=== PATIENT | female | born 1980 | race Two or more races ===

== ENCOUNTER 2024-08-28 21:27 | Inpatient (IN) | payer OTHER, MEDICAID ==
[~2024-08-28] VITALS: Ht 165.1 cm; Wt 54.9 kg
[2024-08-28] MEDS ORDERED: MORPHINE SULFATE 4 MG/ML INJ (FOR IV/IM USE) IV ONE (21:45)
[2024-08-28] MEDS: MORPHINE SULFATE 4 MG/ML INJ (FOR IV/IM USE) IV NR (23:02)
[2024-08-28 23:19] LABS: CHLORIDE 95 mEq/L (98-107); POTASSIUM 4.6 mEq/L (3.5-5.1); SODIUM 123 mEq/L (136-145)
[2024-08-28 23:20] LABS: CALCIUM 9.1 mg/dL (8.7-10.4); CARBON DIOXIDE 26 mEq/L (21-32)
[2024-08-28 23:25] LABS: CREATININE 0.7 mg/dL (0.6-1.0); GLUCOSE 120 mg/dL (70-105); UREA NITROGEN BLOOD 20 mg/dL (9-23)
[2024-08-28 23:27] LABS: ALANINE AMINOTRANSFERASE 35 IU/L (10-49); ALBUMIN 3.2 g/dL (3.2-4.8); ASPARTATE AMINOTRANSFERASE 39 IU/L (<34); BILIRUBIN DIRECT 13.1 mg/dL (<=3.0); PROTEIN TOTAL 7.4 g/dL (6.0-8.3)
[2024-08-28 23:30] LABS: HEMATOCRIT. 22.3 % (36.0-48.0); HEMOGLOBIN. 7.7 g/dL (12.0-16.0); MEAN CORPUSCULAR HEMOGLOBIN 44.4 pg (28.0-32.0); MEAN CORPUSCULAR HGB CONC 34.4 g/dL (31.0-37.0); MEAN CORPUSCULAR VOLUME 129.1 fL (81.0-99.0); MEAN PLATELET VOLUME 7.9 fl (7.4-10.4); PLATELET 73 x1000/uL (130-400); RED BLOOD CELL COUNT 1.73 mill/uL (4.2-5.4); RED CELL DISTRIBUTION WIDTH 24.2 % (11.6-14.6); WHITE BLOOD COUNT 7.9 x1000/uL (4.5-11.0)
[2024-08-28 23:31] LABS: HCG SCREEN NEGATIVE
[2024-08-28 23:34] LABS: DIFFERENTIAL COMMENT 1
[2024-08-28] MEDS: SODIUM CHLORIDE 0.9% 500 ML IV ONE (23:45)
[2024-08-28 23:54] LABS: TROPONIN I HIGH SENSITIVITY 39 ng/L (3.0-34)
[2024-08-28 23:57] LABS: INR 2.1; PROTHROMBIN TIME 22.4 sec (9.6-11.0)
[2024-08-29] VITALS (7 sets, daily range): BP systolic 81–111; BP diastolic 51–62; PULSE 76–82; RESP 16–30; TEMP 36.78072–37.89192; O2SAT 96–100
[2024-08-29 07:25] LABS: PLATELET ESTIMATE DECREASED
[2024-08-29 07:26] LABS: ANISOCYTOSIS 2+
[2024-08-29 10:42] LABS: BG CARBOXYHEMOGLOBIN 3.1 % (0.5-1.5); BG DEOXYHEMOGLOBIN 0.3 % (0.0-5.0); BG FRACTION INSPIRED OXYGEN 32; BG METHEMOGLOBIN 0.3 % (0.5-1.5); BG OXYGEN SATURATION 99.7 % (94.0-98.0); BG OXYHEMOGLOBIN 96.3 % (94.0-98.0); BG PCO2 36.1 mmHg (32.0-45.0); BG PH 7.441 (7.350-7.450); BG PO2 168.4 mmHg (83.0-108.0); BG SAMPLE SITE LEFT RADIAL; BG TOTAL HEMOGLOBIN 8.6 g/dL (12.0-16.0); BG VENT MODE NASAL CANNULA
[2024-08-29 11:15] LABS: CARBON DIOXIDE 25 mEq/L (21-32); CHLORIDE 98 mEq/L (98-107); POTASSIUM 5.3 mEq/L (3.5-5.1); SODIUM 126 mEq/L (136-145)
[2024-08-29 11:16] LABS: CALCIUM 8.8 mg/dL (8.7-10.4)
[2024-08-29 11:21] LABS: CREATININE 0.3 mg/dL (0.6-1.0); GLUCOSE 106 mg/dL (70-105); UREA NITROGEN BLOOD 18 mg/dL (9-23)
[2024-08-29] MEDS ORDERED: LORAZEPAM 2MG/ML INJ IV PRN (12:00)
[2024-08-29] MEDS ORDERED: IPRATROPIUM/ALBUTEROL 0.5-3(2.5)MG/3ML NEB HHN PRN (12:15)
[2024-08-29] MEDS ORDERED: NALOXONE HCL 0.4MG/ML VIAL IV PRN (12:15)
[2024-08-29 13:13] LABS: AMMONIA 55 uMol/L (<32)
[2024-08-29] MEDS ORDERED: PIPERACILLIN/TAZO 3.375G/50ML 50 ML IV SCH (14:00)
[2024-08-29] MEDS ORDERED: CEFEPIME 2GM/50ML DUPLEX 50 ML IV SCH (14:00)
[2024-08-29] MEDS ORDERED: ACETAMINOPHEN 650MG SUPP PR PRN (15:15)
[2024-08-29] MEDS: CEFEPIME 2GM/100ML 100 ML IV SCH (15:21)
[2024-08-29] MEDS: MORPHINE SULFATE 2 MG/ML INJ (NOT FOR IM USE) IV PRN (15:22)
[2024-08-29] MEDS: METRONIDAZOLE 500 MG PREMIX 100 ML IV SCH (16:50)
[2024-08-29] MEDS: ALBUMIN HUMAN 12.5G/250ML (5%) IV NR (18:50)
[2024-08-29] MEDS: MORPHINE SULFATE 2 MG/ML INJ (NOT FOR IM USE) IV SCH (18:51)
[2024-08-30] VITALS: BP 91/52; PULSE 81; RESP 19; TEMP 37.61412; O2SAT 100
[2024-08-30 04:00] VITALS: BP 90/49; PULSE 84; RESP 23; TEMP 37.00296; O2SAT 100
[2024-08-30 07:38] LABS: CARBON DIOXIDE 22 mEq/L (21-32)
[2024-08-30 07:44] LABS: GLUCOSE 98 mg/dL (70-105); UREA NITROGEN BLOOD 24 mg/dL (9-23)
[2024-08-30 07:45] LABS: THYROID STIMULATING HORMONE 0.83 uIU/mL (0.55-4.78)
[2024-08-30 08:00] VITALS: BP 88/48; PULSE 73; RESP 13; TEMP 36.78072; O2SAT 100
[2024-08-30 08:31] LABS: CREATININE 0.6 mg/dL (0.6-1.0)
[2024-08-30 08:33] LABS: CHLORIDE 100 mEq/L (98-107); POTASSIUM 4.9 mEq/L (3.5-5.1); SODIUM 128 mEq/L (136-145)
[2024-08-30] MEDS: ZINC OXIDE 20% OINT 30GM TOP SCH (09:00)
[2024-08-30 12:00] VITALS: BP 88/51; PULSE 70; RESP 18; TEMP 36.9474; O2SAT 100
[2024-08-30] MEDS: MIDODRINE HCL 5MG TABLET PO SCH (12:14)
[2024-08-30 16:00] VITALS: BP 86/49; PULSE 73; RESP 20; TEMP 36.83628; O2SAT 98
[2024-08-30 20:00] VITALS: BP 81/44; PULSE 62; RESP 19; TEMP 36.44736; O2SAT 100
[2024-08-31] VITALS: BP 81/44; PULSE 77; RESP 22; TEMP 36.83628; O2SAT 99
[2024-08-31 04:00] VITALS: BP 82/41; PULSE 74; RESP 16; TEMP 36.44736; O2SAT 100
[2024-08-31 07:23] LABS: POTASSIUM 5.2 mEq/L (3.5-5.1)
[2024-08-31 07:24] LABS: CALCIUM 8.4 mg/dL (8.7-10.4)
[2024-08-31] MEDS: SODIUM CHLORIDE 0.9% 500 ML IV ONE (07:30)
[2024-08-31 07:55] LABS: HEMATOCRIT. 23.3 % (36.0-48.0); HEMOGLOBIN. 7.8 g/dL (12.0-16.0); MEAN CORPUSCULAR HEMOGLOBIN 46.8 pg (28.0-32.0); MEAN CORPUSCULAR HGB CONC 33.5 g/dL (31.0-37.0); MEAN CORPUSCULAR VOLUME 139.6 fL (81.0-99.0); RED BLOOD CELL COUNT 1.67 mill/uL (4.2-5.4); RED CELL DISTRIBUTION WIDTH 21.9 % (11.6-14.6)
[2024-08-31 08:00] VITALS: BP 77/40; PULSE 67; RESP 19; TEMP 36.9474; O2SAT 100
[2024-08-31] MEDS: ALBUMIN HUMAN 25GM/100ML (25%) IV SCH (08:18)
[2024-08-31 08:27] LABS: DIFFERENTIAL COMMENT 1
[2024-08-31] MEDS: SODIUM ZIRCONIUM CYCLOSILICATE 10GM/PACKET PO SCH (09:11)
[2024-08-31 12:00] VITALS: BP 81/47; PULSE 65; RESP 23; TEMP 36.55848; O2SAT 100
[2024-08-31 14:35] LABS: ANISOCYTOSIS 3+; PLATELET 53 x1000/uL (130-400); PLATELET ESTIMATE MARKEDLY DECREASED
[2024-08-31 14:36] LABS: MEAN PLATELET VOLUME 8.9 fl (7.4-10.4)
[2024-08-31] MEDS: SODIUM CHLORIDE 0.9% (SEPSIS BOLUS) IV ONE (14:57)
[2024-08-31 16:00] VITALS: BP 86/49; PULSE 61; RESP 18; TEMP 36.61404; O2SAT 100
[2024-08-31 20:00] VITALS: BP 89/49; PULSE 60; RESP 16; TEMP 36.83628; O2SAT 98
[2024-09-01] VITALS: BP 78/52; PULSE 60; RESP 20; TEMP 36.72516; O2SAT 97
[2024-09-01 04:00] VITALS: BP 91/47; PULSE 61; RESP 21; TEMP 36.55848; O2SAT 100
[2024-09-01 08:00] VITALS: BP 88/49; PULSE 68; RESP 19; TEMP 36.6696; O2SAT 100
[2024-09-01 10:35] LABS: HEMATOCRIT. 24.3 % (36.0-48.0); HEMOGLOBIN. 8.6 g/dL (12.0-16.0); MEAN CORPUSCULAR HGB CONC 35.5 g/dL (31.0-37.0); MEAN CORPUSCULAR VOLUME 132.4 fL (81.0-99.0); RED BLOOD CELL COUNT 1.84 mill/uL (4.2-5.4); RED CELL DISTRIBUTION WIDTH 18.8 % (11.6-14.6)
[2024-09-01 10:41] LABS: CHLORIDE 101 mEq/L (98-107); POTASSIUM 4.8 mEq/L (3.5-5.1); SODIUM 124 mEq/L (136-145)
[2024-09-01 10:42] LABS: CALCIUM 8.6 mg/dL (8.7-10.4); CARBON DIOXIDE 19 mEq/L (21-32)
[2024-09-01 10:47] LABS: CREATININE 0.9 mg/dL (0.6-1.0); GLUCOSE 112 mg/dL (70-105); UREA NITROGEN BLOOD 46 mg/dL (9-23)
[2024-09-01 11:02] LABS: DIFFERENTIAL COMMENT 1
[2024-09-01 12:00] VITALS: BP 80/42; PULSE 70; RESP 18; TEMP 36.61404; O2SAT 100
[2024-09-01 15:37] LABS: ANISOCYTOSIS 2+; PLATELET ESTIMATE DECREASED
[2024-09-01 15:38] LABS: ROULEAUX 1+
[2024-09-01 15:39] LABS: MEAN PLATELET VOLUME 8.4 fl (7.4-10.4); PLATELET 71 x1000/uL (130-400)
[2024-09-01 16:00] VITALS: BP 91/57; PULSE 66; RESP 15; TEMP 36.55848; O2SAT 100
[2024-09-01 20:00] VITALS: BP 83/45; PULSE 57; RESP 16; TEMP 36.9474; O2SAT 96
[2024-09-02] VITALS: BP 90/43; PULSE 56; RESP 19; TEMP 36.83628; O2SAT 100
[2024-09-02 04:00] VITALS: BP 87/41; PULSE 56; RESP 22; TEMP 36.72516; O2SAT 100
[2024-09-02 07:43] LABS: POTASSIUM 4.9 mEq/L (3.5-5.1)
[2024-09-02 07:45] LABS: HEMATOCRIT. 27.3 % (36.0-48.0); HEMOGLOBIN. 9.1 g/dL (12.0-16.0); MEAN CORPUSCULAR HEMOGLOBIN 46.3 pg (28.0-32.0); MEAN CORPUSCULAR HGB CONC 33.2 g/dL (31.0-37.0); MEAN CORPUSCULAR VOLUME 139.5 fL (81.0-99.0); RED BLOOD CELL COUNT 1.96 mill/uL (4.2-5.4)
[2024-09-02 08:00] VITALS: BP 88/46; PULSE 72; RESP 18; TEMP 36.72516; O2SAT 98
[2024-09-02 08:25] LABS: DIFFERENTIAL COMMENT 1
[2024-09-02 12:00] VITALS: BP 90/47; PULSE 84; RESP 18; TEMP 36.72516; O2SAT 98
[2024-09-02 16:00] VITALS: BP 87/46; PULSE 76; RESP 20; TEMP 36.6696; O2SAT 99
[2024-09-02 16:21] LABS: ANISOCYTOSIS 1+
[2024-09-02 16:22] LABS: ROULEAUX 1+
[2024-09-02 16:23] LABS: MEAN PLATELET VOLUME 8.4 fl (7.4-10.4); PLATELET 75 x1000/uL (130-400); PLATELET ESTIMATE DECREASED
[2024-09-02 20:00] VITALS: BP 92/49; PULSE 64; RESP 15; TEMP 36.44736; O2SAT 100
[2024-09-03] VITALS (8 sets, daily range): BP systolic 79–108; BP diastolic 41–76; PULSE 65–82; RESP 10–22; TEMP 36.16956–36.83628; O2SAT 95–100
[2024-09-03] MEDS: SODIUM CHLORIDE 0.9% 500 ML IV ONE (11:36)
[2024-09-04] VITALS: BP 85/47; PULSE 80; RESP 17; TEMP 36.28068; O2SAT 100
[2024-09-04 04:00] VITALS: BP 82/45; PULSE 77; RESP 19; TEMP 36.83628; O2SAT 100
[2024-09-04 08:00] VITALS: BP 87/44; PULSE 73; RESP 18; TEMP 36.61404; O2SAT 97
[2024-09-04] MEDS ORDERED: LORAZEPAM 2MG/ML INJ IV PRN (09:15)
[2024-09-04] MEDS ORDERED: NALOXONE HCL 0.4MG/ML VIAL IV PRN (09:30)
[2024-09-04 11:38] LABS: AMMONIA < 17 uMol/L (<32)
[2024-09-04 12:00] VITALS: BP 92/49; PULSE 67; RESP 12; TEMP 36.83628; O2SAT 100
[2024-09-04 16:00] VITALS: BP 95/54; PULSE 67; RESP 19; TEMP 37.00296; O2SAT 96
[2024-09-04 20:00] VITALS: BP 93/52; PULSE 78; RESP 20; TEMP 36.50292; O2SAT 100
[2024-09-05] VITALS: BP 92/45; PULSE 74; RESP 19; TEMP 36.44736; O2SAT 100
[2024-09-05 04:00] VITALS: BP 90/56; PULSE 81; RESP 18; TEMP 36.55848; O2SAT 99
[2024-09-05 08:00] VITALS: BP 93/44; PULSE 71; RESP 14; TEMP 36.55848; O2SAT 100
[2024-09-05 11:56] LABS: HEMOGLOBIN. 9.2 g/dL (12.0-16.0); MEAN CORPUSCULAR HEMOGLOBIN 46.7 pg (28.0-32.0); MEAN CORPUSCULAR HGB CONC 34.1 g/dL (31.0-37.0); RED BLOOD CELL COUNT 1.97 mill/uL (4.2-5.4); RED CELL DISTRIBUTION WIDTH 15.4 % (11.6-14.6)
[2024-09-05 12:00] VITALS: BP 95/45; PULSE 77; RESP 15; TEMP 36.44736; O2SAT 95
[2024-09-05 12:01] LABS: POTASSIUM 5.5 mEq/L (3.5-5.1)
[2024-09-05 12:02] LABS: CALCIUM 9.4 mg/dL (8.7-10.4)
[2024-09-05 12:07] LABS: DIFFERENTIAL COMMENT 1
[2024-09-05 12:43] LABS: CREATININE 1.4 mg/dL (0.6-1.0)
[2024-09-05 13:05] LABS: ANISOCYTOSIS 1+; PLATELET ESTIMATE NORMAL
[2024-09-05] MEDS: SODIUM ZIRCONIUM CYCLOSILICATE 10GM/PACKET PO NR (15:15)
[2024-09-05] MEDS: SODIUM BICARBONATE 100 MEQ in SODIUM CHLORIDE 0.45% 900 ML IV SCH (15:42)
[2024-09-05 16:00] VITALS: BP 103/52; PULSE 76; RESP 17; TEMP 36.89184; O2SAT 95
[2024-09-05] MEDS: MORPHINE SULFATE 2 MG/ML INJ (NOT FOR IM USE) IV PRN (18:06)
[2024-09-05 20:00] VITALS: BP 93/45; PULSE 79; RESP 14; TEMP 36.78072; O2SAT 100
[2024-09-06] VITALS: BP 92/44; PULSE 77; RESP 16; TEMP 36.6696; O2SAT 100
[2024-09-06 04:00] VITALS: BP 92/40; PULSE 80; RESP 14; TEMP 36.3918; O2SAT 100
[2024-09-06 07:53] LABS: HEMATOCRIT. 24.8 % (36.0-48.0); HEMOGLOBIN. 8.6 g/dL (12.0-16.0); MEAN CORPUSCULAR HEMOGLOBIN 46.9 pg (28.0-32.0); MEAN CORPUSCULAR HGB CONC 34.9 g/dL (31.0-37.0); MEAN CORPUSCULAR VOLUME 134.3 fL (81.0-99.0); RED BLOOD CELL COUNT 1.84 mill/uL (4.2-5.4); RED CELL DISTRIBUTION WIDTH 15.1 % (11.6-14.6)
[2024-09-06 08:00] VITALS: BP 93/49; PULSE 76; RESP 12; TEMP 36.55848; O2SAT 100
[2024-09-06 08:08] LABS: CALCIUM 9.4 mg/dL (8.7-10.4); POTASSIUM 4.8 mEq/L (3.5-5.1)
[2024-09-06 08:14] LABS: CREATININE 1.2 mg/dL (0.6-1.0)
[2024-09-06 09:05] LABS: DIFFERENTIAL COMMENT 1
[2024-09-06 12:00] VITALS: BP 96/51; PULSE 75; RESP 15; TEMP 36.6696; O2SAT 100
[2024-09-06 14:56] LABS: ANISOCYTOSIS 1+
[2024-09-06 14:58] LABS: MEAN PLATELET VOLUME 8.6 fl (7.4-10.4); PLATELET 93 x1000/uL (130-400)
[2024-09-06 16:00] VITALS: BP 102/53; PULSE 70; RESP 16; TEMP 36.72516; O2SAT 100
[2024-09-06 19:32] LABS: PLATELET ESTIMATE SLIGHTLY DECREASED
[2024-09-06 20:00] VITALS: BP 100/49; PULSE 72; RESP 15; TEMP 36.6696; O2SAT 100
[2024-09-07] VITALS: BP 101/50; PULSE 75; RESP 14; TEMP 36.78072; O2SAT 100
[2024-09-07 04:00] VITALS: BP 94/44; PULSE 66; RESP 13; TEMP 36.78072; O2SAT 100
[2024-09-07 08:00] VITALS: BP 80/49; PULSE 83; RESP 12; TEMP 36.72516; O2SAT 100
[2024-09-07 12:00] VITALS: BP 94/50; PULSE 77; RESP 18; TEMP 36.33624; O2SAT 100
[2024-09-07] MEDS: ACETAMINOPHEN 325MG TABLET PO PRN (12:57)
[2024-09-07 16:00] VITALS: BP 89/42; PULSE 75; RESP 21; TEMP 36.6696; O2SAT 100
[2024-09-07] MEDS: HYDROCODONE/ACETAMINOPHEN 5/325MG TABLET PO PRN (17:59)
[2024-09-07] MEDS: ONDANSETRON HCL 4MG/2ML INJ IV PRN (18:45)
[2024-09-07 20:00] VITALS: BP 91/51; PULSE 72; RESP 17; TEMP 36.83628; O2SAT 100
[2024-09-08 00:22] VITALS: BP 88/52; PULSE 74; RESP 16; TEMP 36.9474; O2SAT 100
[2024-09-08 04:00] VITALS: BP 85/45; PULSE 70; RESP 14; TEMP 36.89184; O2SAT 100
[2024-09-08 08:00] VITALS: BP 79/44; PULSE 79; RESP 17; TEMP 36.83628; O2SAT 100
[2024-09-08] MEDS: ALBUMIN HUMAN 25GM/100ML (25%) IV NR (11:28)
[2024-09-08 12:00] VITALS: BP 97/51; PULSE 85; RESP 17; TEMP 36.44736; O2SAT 100
[2024-09-08] MEDS: DOCUSATE SODIUM 100MG CAPSULE PO SCH (12:34)
[2024-09-08] MEDS: FOLIC ACID/VITAMIN B COMP W-C TABLET PO SCH (12:34)
[2024-09-08 16:00] VITALS: BP 92/60; PULSE 77; RESP 17; TEMP 36.72516; O2SAT 100
[2024-09-08 20:00] VITALS: BP 97/60; PULSE 75; RESP 18; TEMP 36.83628; O2SAT 100
[2024-09-08] MEDS: LACTULOSE 20G/30ML UDC PO NR (22:45)
[2024-09-08] MEDS: NA PHOS,M-B/NA PHOS,DI-BA ENEMA 118ML PR NR (22:46)
[2024-09-09] VITALS: BP 97/59; PULSE 82; RESP 17; TEMP 36.78072; O2SAT 100
[2024-09-09 04:00] VITALS: BP 91/54; PULSE 76; RESP 13; TEMP 36.9474; O2SAT 100
[2024-09-09 08:00] VITALS: BP 91/51; PULSE 80; RESP 15; TEMP 36.83628; O2SAT 98
[2024-09-09 11:29] LABS: POTASSIUM 3.8 mEq/L (3.5-5.1)
[2024-09-09 11:31] LABS: CALCIUM 8.7 mg/dL (8.7-10.4)
[2024-09-09 11:35] LABS: CREATININE 1.1 mg/dL (0.6-1.0)
[2024-09-09 12:00] VITALS: BP 92/43; PULSE 83; RESP 15; TEMP 36.83628; O2SAT 100
[2024-09-09 16:00] VITALS: BP 79/40; PULSE 87; RESP 21; TEMP 37.05852; O2SAT 99
[2024-09-09 20:00] VITALS: BP 76/41; PULSE 95; RESP 22; TEMP 37.16964; O2SAT 100
[2024-09-09] MEDS: LACTULOSE 20G/30ML UDC PO NR (21:37)
[2024-09-10] VITALS: BP 80/45; PULSE 89; RESP 18; TEMP 36.44736; O2SAT 98
[2024-09-10 04:00] VITALS: BP 84/47; PULSE 85; RESP 16; TEMP 36.83628; O2SAT 100
[2024-09-10 07:43] VITALS: BP 80/43; PULSE 82; RESP 20; TEMP 36.6696; O2SAT 100
[2024-09-10 11:37] VITALS: BP 87/48; PULSE 80; RESP 20; O2SAT 100
[2024-09-10 15:07] VITALS: BP 86/42; PULSE 80; RESP 20; TEMP 36.6696; O2SAT 100
[2024-09-10] MEDS: MORPHINE SULFATE 2 MG/ML INJ (NOT FOR IM USE) IV PRN (17:19)
[2024-09-10 20:00] VITALS: BP 87/43; PULSE 74; RESP 21; TEMP 36.61404; O2SAT 97
[2024-09-11] VITALS (9 sets, daily range): BP systolic 69–89; BP diastolic 34–52; PULSE 53–80; RESP 12–21; TEMP 36.44736–36.89184; O2SAT 96–100
[2024-09-11] MEDS: SODIUM CHLORIDE 0.9% 250 ML IV ONE (20:51)
[2024-09-12] VITALS: BP 78/50; PULSE 68; RESP 14; TEMP 36.72516; O2SAT 100
[2024-09-12] MEDS: SODIUM CHLORIDE 0.9% 1,000 ML IV SCH (00:07)
[2024-09-12 04:00] VITALS: BP 82/44; PULSE 63; RESP 22; TEMP 36.28068; O2SAT 100
[2024-09-12 08:00] VITALS: BP 75/37; PULSE 70; RESP 15; TEMP 36.33624; O2SAT 100
[2024-09-12 12:00] VITALS: BP 75/35; PULSE 70; RESP 19; TEMP 36.89184; O2SAT 100
[2024-09-12 16:00] VITALS: BP 80/37; PULSE 71; RESP 20; TEMP 36.72516; O2SAT 100
[2024-09-13] VITALS: BP 82/45; PULSE 78; RESP 18; TEMP 36.78072; O2SAT 100
[2024-09-13 04:00] VITALS: BP 90/42; PULSE 85; RESP 18; TEMP 36.3918; O2SAT 96
[2024-09-13 06:45] VITALS: BP 92/47; PULSE 74; RESP 12; O2SAT 98
[2024-09-13 08:00] VITALS: BP 90/45; PULSE 113; RESP 17; TEMP 36.6696; O2SAT 98
[2024-09-13 12:00] VITALS: BP 95/47; PULSE 75; RESP 15; TEMP 36.83628; O2SAT 100
[2024-09-13 16:00] VITALS: BP 94/46; PULSE 68; RESP 16; TEMP 36.89184; O2SAT 99
[2024-09-14 04:00] VITALS: BP 90/42; PULSE 85; RESP 18; TEMP 37.00296; O2SAT 96
[2024-09-14 08:00] VITALS: BP 90/47; PULSE 76; RESP 14; TEMP 36.55848; O2SAT 100
[2024-09-14 12:00] VITALS: BP 93/45; PULSE 73; RESP 13; TEMP 36.28068; O2SAT 100
[2024-09-14] MEDS: MORPHINE SULFATE 2 MG/ML INJ (NOT FOR IM USE) IV PRN (15:02)
[2024-09-14 16:00] VITALS: BP 88/50; PULSE 70; RESP 14; TEMP 36.6696; O2SAT 100
[2024-09-14 20:00] VITALS: BP 80/46; PULSE 67; RESP 13; TEMP 36.78072; O2SAT 100
[2024-09-15] VITALS (9 sets, daily range): BP systolic 56–87; BP diastolic 22–50; PULSE 65–77; RESP 14–24; TEMP 36.3918–37.11408; O2SAT 100
[2024-09-16] VITALS: BP 87/46; PULSE 81; RESP 18; TEMP 36.3918; O2SAT 100
[2024-09-16 04:00] VITALS: BP 81/38; PULSE 81; RESP 18; TEMP 36.61404; O2SAT 97
[2024-09-16 08:00] VITALS: BP 92/45; PULSE 79; RESP 19; TEMP 36.72516; O2SAT 100
[2024-09-16 12:00] VITALS: BP 102/55; PULSE 78; RESP 18; TEMP 36.89184; O2SAT 100
[2024-09-16 16:00] VITALS: BP 107/64; PULSE 84; RESP 18; TEMP 36.83628; O2SAT 99
[2024-09-16 20:00] VITALS: BP 98/58; PULSE 91; RESP 27; TEMP 36.72516; O2SAT 100
[2024-09-16] MEDS ORDERED: NALOXONE HCL 0.4MG/ML VIAL IV PRN (21:30)
[2024-09-17] VITALS: BP 84/44; PULSE 75; RESP 25; TEMP 36.6696; O2SAT 99
[2024-09-17 06:00] VITALS: BP 96/55; PULSE 88; RESP 25; TEMP 36.72516; O2SAT 100
[2024-09-17 08:00] VITALS: BP 94/54; PULSE 75; RESP 17; TEMP 36.50292; O2SAT 100
[2024-09-17 12:00] VITALS: BP 98/61; PULSE 70; RESP 18; TEMP 36.72516; O2SAT 100
[2024-09-17 16:00] VITALS: BP 95/60; PULSE 74; RESP 18; TEMP 36.72516; O2SAT 100
[2024-09-17 20:00] VITALS: BP 87/48; PULSE 64; RESP 17; TEMP 36.89184; O2SAT 99
[2024-09-18] VITALS: BP 82/45; PULSE 75; RESP 17; TEMP 36.89184; O2SAT 100
[2024-09-18 04:00] VITALS: BP 89/45; PULSE 70; RESP 18; TEMP 36.78072; O2SAT 97
[2024-09-18 08:00] VITALS: BP 91/50; PULSE 50; RESP 17; TEMP 35.94732; O2SAT 96
[2024-09-18 12:00] VITALS: BP 93/56; PULSE 88; RESP 18; TEMP 36.55848; O2SAT 100
[2024-09-18 16:00] VITALS: BP 96/53; PULSE 94; RESP 19; TEMP 36.50292; O2SAT 100
[2024-09-18 20:00] VITALS: BP 97/49; PULSE 93; RESP 16; TEMP 36.61404; O2SAT 100
[2024-09-19] VITALS: BP 93/53; PULSE 82; RESP 18; TEMP 36.6696; O2SAT 98
[2024-09-19 04:00] VITALS: BP 96/55; PULSE 91; RESP 18; TEMP 36.72516; O2SAT 97
[2024-09-19 08:00] VITALS: BP 96/55; PULSE 82; RESP 18; TEMP 37.11408; O2SAT 100
[2024-09-19 12:00] VITALS: PULSE 60; RESP 18; TEMP 36.61404; O2SAT 98
[2024-09-19] MEDS ORDERED: NALOXONE HCL 0.4MG/ML VIAL IV PRN (15:00)
[2024-09-19] MEDS: MORPHINE SULFATE 2 MG/ML INJ (NOT FOR IM USE) IV PRN (15:06)
[2024-09-19 16:00] VITALS: BP 95/57; PULSE 77; RESP 18; TEMP 36.61404; O2SAT 100
[2024-09-19 20:00] VITALS: BP 95/54; PULSE 86; RESP 16; TEMP 36.16956; O2SAT 93
[2024-09-20] VITALS: BP 84/35; PULSE 82; RESP 16; TEMP 36.22512; O2SAT 100
[2024-09-20 04:00] VITALS: BP 96/51; PULSE 81; RESP 16; TEMP 36.05844; O2SAT 97
[2024-09-20 08:00] VITALS: BP 98/52; PULSE 82; RESP 18; TEMP 36.72516; O2SAT 100
[2024-09-20 12:00] VITALS: BP 96/47; PULSE 82; RESP 18; TEMP 36.72516; O2SAT 98
[2024-09-20 16:00] VITALS: BP 102/61; PULSE 76; RESP 18; TEMP 36.72516; O2SAT 98
[2024-09-20 20:00] VITALS: BP 97/50; PULSE 83; RESP 18; TEMP 37.11408; O2SAT 100
[2024-09-21] VITALS: BP 98/46; PULSE 83; RESP 17; TEMP 36.55848; O2SAT 99
[2024-09-21 04:00] VITALS: BP 96/52; PULSE 78; RESP 17; TEMP 35.94732; O2SAT 99
[2024-09-21 08:00] VITALS: BP 83/32; PULSE 103; RESP 20; TEMP 35.78064; O2SAT 99
[2024-09-21 12:00] VITALS: BP 99/43; PULSE 93; RESP 19; TEMP 35.8362; O2SAT 100
[2024-09-21 16:00] VITALS: BP 107/59; PULSE 101; RESP 19; TEMP 36.3918; O2SAT 100
[2024-09-21 20:00] VITALS: BP 106/62; PULSE 91; RESP 18; TEMP 36.44736; O2SAT 96
[2024-09-22] VITALS: BP 109/64; PULSE 101; RESP 18; TEMP 36.33624; O2SAT 100
[2024-09-22 04:00] VITALS: BP 97/55; PULSE 104; RESP 20; TEMP 35.94732; O2SAT 99
[2024-09-22] MEDS: METOCLOPRAMIDE HCL 10MG/2ML VIAL IV PRN (11:21)
[2024-09-22 12:00] VITALS: BP 85/39; PULSE 84; RESP 17; TEMP 36.89184; O2SAT 100
[2024-09-22] MEDS ORDERED: LORAZEPAM 2MG/ML INJ IV PRN (13:15)
[2024-09-22 16:00] VITALS: BP 99/43; PULSE 99; RESP 17; TEMP 36.9474; O2SAT 100
[2024-09-22 20:00] VITALS: BP 89/40; PULSE 85; RESP 18; TEMP 36.114; O2SAT 99
[2024-09-23] VITALS: BP 90/44; PULSE 77; RESP 18; TEMP 36.28068; O2SAT 100
[2024-09-23 04:30] VITALS: BP 94/42; PULSE 85; RESP 17; TEMP 36.50292; O2SAT 100
[2024-09-23 08:00] VITALS: BP 90/41; PULSE 75; RESP 18; TEMP 36.72516; O2SAT 100
[2024-09-23 12:00] VITALS: BP 93/47; PULSE 79; RESP 16; TEMP 36.78072; O2SAT 95
[2024-09-23 16:00] VITALS: BP 101/59; PULSE 97; RESP 16; TEMP 36.72516; O2SAT 95
[2024-09-23 20:00] VITALS: BP 106/63; PULSE 88; RESP 20; TEMP 36.3918; O2SAT 100
[2024-09-24] VITALS: BP 100/52; PULSE 97; RESP 20; TEMP 36.50292; O2SAT 100
[2024-09-24 04:00] VITALS: BP 97/43; PULSE 98; RESP 20; TEMP 36.72516; O2SAT 100
[2024-09-24 08:00] VITALS: BP 95/44; PULSE 103; RESP 18; TEMP 36.78072; O2SAT 96
[2024-09-24 12:00] VITALS: BP 90/33; PULSE 102; RESP 18; TEMP 36.78072; O2SAT 95
[2024-09-24 16:00] VITALS: BP 114/53; PULSE 113; RESP 18; TEMP 36.78072; O2SAT 100
[2024-09-24] MEDS: DEXT 5%/0.9% NACL 1,000 ML IV SCH (16:11)
[2024-09-25] VITALS: BP 99/53; PULSE 107; RESP 18; TEMP 36.28068
[2024-09-25 04:00] VITALS: BP 94/49; PULSE 96; RESP 18; TEMP 36.28068; O2SAT 100
[2024-09-25 08:00] VITALS: BP 103/54; PULSE 109; RESP 20; TEMP 36.3918; O2SAT 100
[2024-09-25 12:00] VITALS: BP 104/62; PULSE 109; RESP 20; TEMP 36.55848; O2SAT 99
[2024-09-25 16:00] VITALS: BP 98/54; PULSE 106; RESP 20; TEMP 36.61404; O2SAT 99
[2024-09-25 20:00] VITALS: BP 104/63; PULSE 119; RESP 18; TEMP 36.28068; O2SAT 100
[2024-09-26] VITALS: BP 109/56; PULSE 114; RESP 18; TEMP 36.50292; O2SAT 100
[2024-09-26 04:00] VITALS: BP 101/62; PULSE 109; RESP 18; TEMP 36.05844; O2SAT 100
[2024-09-26 08:00] VITALS: BP 112/56; PULSE 102; RESP 18; TEMP 36.33624; O2SAT 100
[2024-09-26 12:00] VITALS: BP 102/60; PULSE 104; RESP 18; TEMP 36.6696; O2SAT 100
[2024-09-26] MEDS ORDERED: METOCLOPRAMIDE HCL 10MG/2ML VIAL IV PRN (14:15)
[2024-09-26 16:00] VITALS: BP 95/51; PULSE 78; RESP 18; TEMP 36.3918; O2SAT 98
[2024-09-26 20:00] VITALS: BP 103/65; PULSE 116; RESP 16; TEMP 36.16956; O2SAT 100
[2024-09-27] VITALS: BP 92/51; PULSE 101; RESP 18; TEMP 36.16956; O2SAT 100
[2024-09-27 04:00] VITALS: BP 92/49; PULSE 111; RESP 18; TEMP 36.00288; O2SAT 100
[2024-09-27 08:00] VITALS: BP 94/51; PULSE 107; RESP 20; TEMP 36.3918; O2SAT 98
[2024-09-27] MEDS ORDERED: NALOXONE HCL 0.4MG/ML VIAL IV PRN (11:45)
[2024-09-27] MEDS ORDERED: LORAZEPAM 2MG/ML INJ IV PRN (11:45)
[2024-09-27 12:00] VITALS: BP 84/42; PULSE 107; RESP 20; TEMP 36.3918; O2SAT 98
[2024-09-27] MEDS: MORPHINE SULFATE 2 MG/ML INJ (NOT FOR IM USE) IV PRN (13:43)
[2024-09-27] MEDS ORDERED: METOCLOPRAMIDE HCL 10MG/2ML VIAL IV PRN (14:15)
[2024-09-27 16:00] VITALS: BP 74/37; PULSE 95; RESP 21; TEMP 36.114; O2SAT 100
[2024-09-27 20:00] VITALS: BP 79/33; PULSE 86; RESP 18; TEMP 36.114; O2SAT 99
[2024-09-28] VITALS: BP 74/31; PULSE 94; RESP 18; TEMP 36.114; O2SAT 99
[2024-09-28] MEDS: SODIUM CHLORIDE 0.9% 500 ML IV ONE (02:59)
[2024-09-28 04:00] VITALS: BP 83/35; PULSE 89; RESP 18; TEMP 36.33624
[2024-09-28 08:00] VITALS: BP 87/41; PULSE 78; RESP 17; TEMP 36.16956; O2SAT 97
[2024-09-28 12:00] VITALS: BP 78/34; PULSE 79; RESP 17; TEMP 36.16956; O2SAT 100
[2024-09-28 16:00] VITALS: BP 73/26; PULSE 72; RESP 17; TEMP 36.00288; O2SAT 98
[2024-09-28 16:21] VITALS: BP 73/26; PULSE 72; RESP 17
== END 2024-09-28 17:57 | DRG 199 ==
LOC: ER 21:27 → EDBEDREQSVC 23:59 → EDBEDREQ 23:59 → 5WST 08-29 01:50 → 3WST 08-29 06:10 → 6WST 09-15 09:26 → 6EST 09-15 11:05 → 6WST 09-24 19:57
PROVIDERS: ADMIT Internal Medicine; ATTEND Internal Medicine
PROC: 0W9930Z Drainage of Right Pleural Cavity with Drainage Device, Percutaneous Approach (ICD-10-PCS; principal; 2024-08-30)
DX: J93.83 Other pneumothorax (principal); J18.9 Pneumonia, unspecified organism; J96.01 Acute respiratory failure with hypoxia; L89.153 Pressure ulcer of sacral region, stage 3; J94.8 Other specified pleural conditions; J90 Pleural effusion, not elsewhere classified; G93.40 Encephalopathy, unspecified; N17.9 Acute kidney failure, unspecified; J98.19 Other pulmonary collapse; E87.1 Hypo-osmolality and hyponatremia; E46 Unspecified protein-calorie malnutrition; T85.618A Breakdown (mechanical) of other specified internal prosthetic devices, implants and grafts, initial encounter; Z66 Do not resuscitate; D69.6 Thrombocytopenia, unspecified; F10.20 Alcohol dependence, uncomplicated; D53.9 Nutritional anemia, unspecified; E87.6 Hypokalemia; K74.60 Unspecified cirrhosis of liver; R79.89 Other specified abnormal findings of blood chemistry; K72.10 Chronic hepatic failure without coma; R62.7 Adult failure to thrive; I95.9 Hypotension, unspecified; Y83.8 Other surgical procedures as the cause of abnormal reaction of the patient, or of later complication, without mention of misadventure at the time of the procedure; Z51.5 Encounter for palliative care; Z74.01 Bed confinement status; Y92.89 Other specified places as the place of occurrence of the external cause; Z68.20 Body mass index [BMI] 20.0-20.9, adult
CPT/HCPCS: 36415; 36600; 71045; 71250; 80048; 80053; 80076; 82140; 82375; 82533; 82805; 82962; 83880; 83930; 84145; 84443; 84484; 84703; 85025; 93005; 93923; 99285; A6261; J0692; J2270; J2405; J2765; J3490; J7030; J7040; J7042; P9041; P9047